=== PATIENT | female | born 1990 | race African-American/Black ===

== ENCOUNTER 2021-10-24 14:02 | Inpatient (IN) | payer OTHER ==
[2021-10-24] MEDS ORDERED: guaiFENesin 200 MG/10 ML 10 ML UNIT-DOSE CUPS PO PRN (16:27)
[2021-10-24] MEDS ORDERED: MAGNESIUM HYDROX 2400MG/30ML ORAL SUSPENSION 30 ML CUP PO PRN (16:27)
[2021-10-24] MEDS ORDERED: MAG HYDROX/AL HYDROX/SIMETH 30 ML UNIT-DOSE CUP PO PRN (16:27)
[2021-10-24] MEDS ORDERED: MAGNESIUM CITRATE 300 ML BOTTLE PO PRN (16:27)
[2021-10-24] MEDS ORDERED: IBUPROFEN 400 MG TABLET (FP) PO PRN (16:27)
[2021-10-24] MEDS ORDERED: LOPERAMIDE HCL 2 MG CAPSULE PO PRN (16:27)
[2021-10-24] MEDS ORDERED: P-EPHED 60MG/TRIPROLIDI 2.5MG TABLET PO PRN (16:27)
[2021-10-24] MEDS ORDERED: ACETAMINOPHEN 325 MG TABLET (FP) PO PRN (16:27)
[2021-10-24 19:40] VITALS: BMI 21.7
[2021-10-24] MEDS ORDERED: TUBERCULIN PPD 5 TU/0.1ML VIAL ID ONE (20:20)
[2021-10-24] MEDS: PRENATAL VITAMINS W/ FOLIC ACID TABLET (FP) PO SCH (20:27)
[2021-10-24] MEDS: NICOTINE 7 MG/24 HOURS TOPICAL PATCH TD SCH (20:27)
[2021-10-24] MEDS: NICOTINE 10 MG CARTRIDGE (INHALER) IH PRN (20:31)
[2021-10-24] MEDS: hydrOXYzine PAMOATE 25 MG CAPSULE (FP) PO SCH ×2 (20:37→21:41)
[2021-10-24] MEDS: MELATONIN 5 MG TABLETS PO SCH (21:41)
[2021-10-24] MEDS: THIAMINE HCL 100 MG TABLET (FP) PO SCH (21:41)
[2021-10-25] MEDS: hydrOXYzine PAMOATE 25 MG CAPSULE (FP) PO SCH ×3 (06:45→15:05)
[2021-10-25] MEDS: NICOTINE 7 MG/24 HOURS TOPICAL PATCH TD SCH (10:51)
[2021-10-25] MEDS: PRENATAL VITAMINS W/ FOLIC ACID TABLET (FP) PO SCH (10:51)
[2021-10-25 12:07] LABS: HEMATOCRIT 38.5 % (32.4-45.2); HEMOGLOBIN 13.1 GM/dL (10.7-15.3); MCH 32.9 pg (25.7-33.7); MEAN CELL VOLUME 96.8 fl (80-96); MEAN PLT VOLUME 8.2 fl (7.5-11.1); PLATELET COUNT 251 10^3/uL (134-434); RBC 3.98 M/mm3 (3.60-5.2); RDW 12.8 % (11.6-15.6); WHITE BLOOD COUNT 6.4 K/mm3 (4.0-10.0)
[2021-10-25 12:10] LABS: EPI CELLS 7 /uL (0-25.1); HYALINE CASTS 6 /uL (0-3.1); URINE APPEARANCE CLEAR; URINE BACTERIA 129 /uL (0-1359); URINE BILIRUBIN NEGATIVE (NEGATIVE); URINE COLOR YELLOW; URINE GLUCOSE (UA) NEGATIVE (NEGATIVE); URINE KETONE NEGATIVE (NEGATIVE); URINE LEUK ESTERASE 2+ (NEGATIVE); URINE NITRITE NEGATIVE (NEGATIVE); URINE PROTEIN NEGATIVE (NEGATIVE); URINE RBC 5 /uL (0-23.9); URINE UROBILINOGEN 0.2 mg/dL (0.2-1.0); URINE WBC 245 /uL (0-25.8)
[2021-10-25 12:25] LABS: CALCIUM 8.5 mg/dL (8.5-10.1)
[2021-10-25 12:29] LABS: CREATININE 0.7 mg/dL (0.55-1.3)
[2021-10-25 12:30] LABS: SYPHILIS W/ RPR CONF NON-REACTIVE (NONREACTIVE)
[2021-10-25 12:31] LABS: BILIRUBIN,TOTAL 0.2 mg/dL (0.2-1)
[2021-10-25 12:32] LABS: TOT PROT 6.4 g/dl (6.4-8.2)
[2021-10-25] MEDS: hydrOXYzine PAMOATE 25 MG CAPSULE (FP) PO PRN (21:18)
[2021-10-25] MEDS: THIAMINE HCL 100 MG TABLET (FP) PO SCH (21:18)
[2021-10-25] MEDS: MELATONIN 5 MG TABLETS PO SCH (21:18)
[2021-10-26] MEDS: NICOTINE 7 MG/24 HOURS TOPICAL PATCH TD SCH (10:55)
[2021-10-26] MEDS: hydrOXYzine PAMOATE 25 MG CAPSULE (FP) PO PRN (10:56)
[2021-10-26] MEDS: PRENATAL VITAMINS W/ FOLIC ACID TABLET (FP) PO SCH (10:56)
[2021-10-26] MEDS: NICOTINE 10 MG CARTRIDGE (INHALER) IH PRN ×2 (10:57→22:17)
[2021-10-26] MEDS: MELATONIN 5 MG TABLETS PO SCH (21:57)
[2021-10-26] MEDS: THIAMINE HCL 100 MG TABLET (FP) PO SCH (21:58)
[2021-10-27 00:06] LABS: SARS-CoV-2 NAA Not Detected (Not Detected)
[2021-10-27] MEDS: NICOTINE 7 MG/24 HOURS TOPICAL PATCH TD SCH (10:03)
[2021-10-27] MEDS: NICOTINE 10 MG CARTRIDGE (INHALER) IH PRN (10:03)
[2021-10-27] MEDS: PRENATAL VITAMINS W/ FOLIC ACID TABLET (FP) PO SCH (10:03)
[2021-10-27] MEDS: MELATONIN 5 MG TABLETS PO SCH (21:53)
[2021-10-27] MEDS: THIAMINE HCL 100 MG TABLET (FP) PO SCH (21:53)
[2021-10-27] MEDS: hydrOXYzine PAMOATE 25 MG CAPSULE (FP) PO PRN (21:54)
[2021-10-28] MEDS: NICOTINE 10 MG CARTRIDGE (INHALER) IH PRN ×3 (02:11→23:22)
[2021-10-28] MEDS: PRENATAL VITAMINS W/ FOLIC ACID TABLET (FP) PO SCH (10:50)
[2021-10-28] MEDS: NICOTINE 7 MG/24 HOURS TOPICAL PATCH TD SCH (10:50)
[2021-10-28] MEDS: hydrOXYzine PAMOATE 25 MG CAPSULE (FP) PO PRN (10:51)
[2021-10-28] MEDS ORDERED: QUEtiapine FUMARATE 25 MG TABLET PO ONE (17:52)
[2021-10-28] MEDS: THIAMINE HCL 100 MG TABLET (FP) PO SCH (21:28)
[2021-10-28] MEDS: MELATONIN 5 MG TABLETS PO SCH (21:28)
[2021-10-28] MEDS ORDERED: QUEtiapine FUMARATE 50 MG TABLET PO SCH (22:00)
[2021-10-29] MEDS: PRENATAL VITAMINS W/ FOLIC ACID TABLET (FP) PO SCH (10:59)
[2021-10-29] MEDS: NICOTINE 7 MG/24 HOURS TOPICAL PATCH TD SCH (10:59)
[2021-10-29 18:10] LABS: HIV INTERPRETATION NEGATIVE (NEGATIVE)
[2021-10-29] MEDS: QUEtiapine FUMARATE 100 MG TABLET (FP) PO SCH (21:38)
[2021-10-29] MEDS: MELATONIN 5 MG TABLETS PO SCH (21:38)
[2021-10-29] MEDS: THIAMINE HCL 100 MG TABLET (FP) PO SCH (21:38)
[2021-10-29] MEDS: hydrOXYzine PAMOATE 25 MG CAPSULE (FP) PO PRN (21:39)
[2021-10-30] MEDS: NICOTINE 10 MG CARTRIDGE (INHALER) IH PRN ×2 (10:37→21:31)
[2021-10-30] MEDS: NICOTINE 7 MG/24 HOURS TOPICAL PATCH TD SCH (10:37)
[2021-10-30] MEDS: PRENATAL VITAMINS W/ FOLIC ACID TABLET (FP) PO SCH (10:37)
[2021-10-30] MEDS: hydrOXYzine PAMOATE 25 MG CAPSULE (FP) PO PRN ×2 (10:38→21:37)
[2021-10-30] MEDS: THIAMINE HCL 100 MG TABLET (FP) PO SCH (21:23)
[2021-10-30] MEDS: QUEtiapine FUMARATE 100 MG TABLET (FP) PO SCH (21:23)
[2021-10-30] MEDS: MELATONIN 5 MG TABLETS PO SCH (21:23)
[2021-10-31 07:32] VITALS: BP 112/74; PULSE 62; TEMP 97.7
[2021-10-31] MEDS: NICOTINE 7 MG/24 HOURS TOPICAL PATCH TD SCH (10:55)
[2021-10-31] MEDS: PRENATAL VITAMINS W/ FOLIC ACID TABLET (FP) PO SCH (10:56)
[2021-10-31] MEDS: hydrOXYzine PAMOATE 25 MG CAPSULE (FP) PO PRN (10:57)
== END 2021-10-31 16:15 | disposition home or self-care (01) | DRG 772 ==
LOC: YASAS 14:02 → Y5N 19:36
PROVIDERS: ADMIT Allergy & Immunology; ATTEND Allergy & Immunology
PROC: HZ42ZZZ Group Counseling for Substance Abuse Treatment, Cognitive-Behavioral (ICD-10-PCS; principal; 2021-10-24)
DX: F14.20 Cocaine dependence, uncomplicated (principal); F10.10 Alcohol abuse, uncomplicated; F12.10 Cannabis abuse, uncomplicated; F17.210 Nicotine dependence, cigarettes, uncomplicated; F39 Unspecified mood [affective] disorder; F19.24 Other psychoactive substance dependence with psychoactive substance-induced mood disorder; F20.9 Schizophrenia, unspecified; M25.452 Effusion, left hip; Z86.59 Personal history of other mental and behavioral disorders; Z91.51 Personal history of suicidal behavior; Z28.310 Unvaccinated for COVID-19; Z56.0 Unemployment, unspecified; Z59.01 Sheltered homelessness
CPT/HCPCS: 36415; 80053; 81003; 85027; 86780; 86803; 87086; 87389; 93005; 93010; C9803-CS; U0003; U0005

== ENCOUNTER 2021-11-10 11:20 | Inpatient (IN) | payer OTHER ==
[2021-11-10 13:55] VITALS: BMI 21.2
[2021-11-10] MEDS ORDERED: LOPERAMIDE HCL 2 MG CAPSULE PO PRN (16:03)
[2021-11-10] MEDS ORDERED: BENZOCAINE/MENTHOL (CHLORASEPTIC ) LOZENGE MM PRN (16:03)
[2021-11-10] MEDS ORDERED: IBUPROFEN 400 MG TABLET (FP) PO PRN (16:03)
[2021-11-10] MEDS ORDERED: METHOCARBAMOL 500 MG TABLET PO PRN (16:03)
[2021-11-10] MEDS ORDERED: chlordiazePOXIDE HCL 25 MG CAPSULE PO PRN (16:03)
[2021-11-10] MEDS ORDERED: DICYCLOMINE HCL 10 MG CAPSULE PO PRN (16:03)
[2021-11-10] MEDS ORDERED: ONDANSETRON *ODT* 4 MG TABLET SL PRN (16:03)
[2021-11-10] MEDS ORDERED: NICOTINE 10 MG CARTRIDGE (INHALER) IH PRN (16:03)
[2021-11-10] MEDS ORDERED: ACETAMINOPHEN 325 MG TABLET (FP) PO PRN ×2 (16:03)
[2021-11-10] MEDS ORDERED: MAGNESIUM CITRATE 300 ML BOTTLE PO PRN (16:03)
[2021-11-10] MEDS ORDERED: BISMUTH SUBSALICYLATE 524 MG/30 ML PO PRN (16:03)
[2021-11-10] MEDS ORDERED: MAG HYDROX/AL HYDROX/SIMETH 30 ML UNIT-DOSE CUP PO PRN (16:03)
[2021-11-10] MEDS ORDERED: MAGNESIUM HYDROX 2400MG/30ML ORAL SUSPENSION 30 ML CUP PO PRN (16:03)
[2021-11-10] MEDS: chlordiazePOXIDE HCL 25 MG CAPSULE PO SCH ×2 (17:50→22:09)
[2021-11-10] MEDS: hydrOXYzine PAMOATE 25 MG CAPSULE (FP) PO SCH ×2 (17:50→22:09)
[2021-11-10] MEDS: THIAMINE HCL 100 MG TABLET (FP) PO SCH (22:09)
[2021-11-10] MEDS: MELATONIN 5 MG TABLETS PO SCH (22:09)
[2021-11-11] MEDS: hydrOXYzine PAMOATE 25 MG CAPSULE (FP) PO SCH ×5 (07:01→22:06)
[2021-11-11] MEDS: chlordiazePOXIDE HCL 25 MG CAPSULE PO SCH ×4 (07:01→22:07)
[2021-11-11 09:48] LABS: HEMATOCRIT 36.6 % (32.4-45.2); HEMOGLOBIN 12.6 GM/dL (10.7-15.3); MCH 32.9 pg (25.7-33.7); MCHC 34.3 g/dl (32.0-36.0); MEAN CELL VOLUME 95.8 fl (80-96); MEAN PLT VOLUME 7.2 fl (7.5-11.1); PLATELET COUNT 307 10^3/uL (134-434); RBC 3.82 M/mm3 (3.60-5.2); RDW 12.5 % (11.6-15.6); WHITE BLOOD COUNT 5.5 K/mm3 (4.0-10.0)
[2021-11-11 09:54] LABS: ALBUMIN 3.3 g/dl (3.4-5.0); BLOOD UREA NITROGEN 14.6 mg/dL (7-18)
[2021-11-11 09:55] LABS: CREATININE 0.8 mg/dL (0.55-1.3)
[2021-11-11 09:58] LABS: TOT PROT 6.6 g/dl (6.4-8.2)
[2021-11-11 10:02] LABS: BILIRUBIN,TOTAL 0.2 mg/dL (0.2-1)
[2021-11-11] MEDS: PRENATAL VITAMINS W/ FOLIC ACID TABLET (FP) PO SCH (10:04)
[2021-11-11 20:08] LABS: EPI CELLS >36 /uL (0-25.1); HYALINE CASTS 2 /uL (0-3.1); URINE APPEARANCE CLOUDY; URINE BACTERIA 291 /uL (0-1359); URINE BILIRUBIN NEGATIVE (NEGATIVE); URINE COLOR YELLOW; URINE GLUCOSE (UA) NEGATIVE (NEGATIVE); URINE KETONE NEGATIVE (NEGATIVE); URINE LEUK ESTERASE 1+ (NEGATIVE); URINE NITRITE NEGATIVE (NEGATIVE); URINE PROTEIN NEGATIVE (NEGATIVE); URINE RBC 9 /uL (0-23.9); URINE UROBILINOGEN 0.2 mg/dL (0.2-1.0); URINE WBC 90 /uL (0-25.8)
[2021-11-11] MEDS: MELATONIN 5 MG TABLETS PO SCH (22:06)
[2021-11-11] MEDS: THIAMINE HCL 100 MG TABLET (FP) PO SCH (22:06)
[2021-11-11] MEDS: QUEtiapine FUMARATE 100 MG TABLET (FP) PO SCH (22:06)
[2021-11-12] MEDS: chlordiazePOXIDE HCL 25 MG CAPSULE PO SCH ×4 (06:46→22:37)
[2021-11-12] MEDS: hydrOXYzine PAMOATE 25 MG CAPSULE (FP) PO SCH ×5 (06:46→22:37)
[2021-11-12] MEDS: PRENATAL VITAMINS W/ FOLIC ACID TABLET (FP) PO SCH (10:10)
[2021-11-12 12:10] LABS: SARS-CoV-2 NAA Not Detected (Not Detected)
[2021-11-12] MEDS: THIAMINE HCL 100 MG TABLET (FP) PO SCH (22:37)
[2021-11-12] MEDS: QUEtiapine FUMARATE 100 MG TABLET (FP) PO SCH (22:37)
[2021-11-12] MEDS: MELATONIN 5 MG TABLETS PO SCH (22:38)
[2021-11-13] MEDS ORDERED: chlordiazePOXIDE HCL 10 MG CAPSULE PO PRN
[2021-11-13] MEDS: chlordiazePOXIDE HCL 10 MG CAPSULE PO SCH ×4 (06:11→22:02)
[2021-11-13] MEDS: hydrOXYzine PAMOATE 25 MG CAPSULE (FP) PO SCH ×5 (06:11→22:01)
[2021-11-13] MEDS: PRENATAL VITAMINS W/ FOLIC ACID TABLET (FP) PO SCH (10:23)
[2021-11-13] MEDS: AMMONIUM LACTATE 12% LOTION 225 GM BOTTLE TP SCH ×2 (12:25→22:03)
[2021-11-13] MEDS: MELATONIN 5 MG TABLETS PO SCH (22:01)
[2021-11-13] MEDS: QUEtiapine FUMARATE 100 MG TABLET (FP) PO SCH (22:01)
[2021-11-13] MEDS: THIAMINE HCL 100 MG TABLET (FP) PO SCH (22:01)
[2021-11-14] MEDS ORDERED: chlordiazePOXIDE HCL 10 MG CAPSULE PO SCH (05:00)
[2021-11-14] MEDS: hydrOXYzine PAMOATE 25 MG CAPSULE (FP) PO SCH ×2 (06:40→10:41)
[2021-11-14 08:48] VITALS: PULSE 88
[2021-11-14] MEDS: PRENATAL VITAMINS W/ FOLIC ACID TABLET (FP) PO SCH (10:40)
[2021-11-14] MEDS: AMMONIUM LACTATE 12% LOTION 225 GM BOTTLE TP SCH (10:41)
[2021-11-14 12:59] VITALS: BP 115/80; TEMP 97.3
[2021-11-15] MEDS ORDERED: chlordiazePOXIDE HCL 10 MG CAPSULE PO ONE (05:00)
== END 2021-11-14 14:00 | disposition left against medical advice (07) | DRG 770 ==
LOC: YASAS 11:20 → Y3N 16:59
PROVIDERS: ADMIT Allergy & Immunology; ATTEND Allergy & Immunology
PROC: HZ2ZZZZ Detoxification Services for Substance Abuse Treatment (ICD-10-PCS; principal; 2021-11-10)
DX: F10.230 Alcohol dependence with withdrawal, uncomplicated (principal); F14.20 Cocaine dependence, uncomplicated; F17.210 Nicotine dependence, cigarettes, uncomplicated; F20.9 Schizophrenia, unspecified; F19.24 Other psychoactive substance dependence with psychoactive substance-induced mood disorder; Z56.0 Unemployment, unspecified; Z59.00 Homelessness unspecified
CPT/HCPCS: 36415; 80053; 81003; 81025; 85027; 86780; 87811; C9803-CS; U0003; U0005

== ENCOUNTER 2022-03-01 08:00 | Inpatient (IN) | payer OTHER ==
[2022-02-28 20:10] VITALS: BMI 23.1
[2022-03-01] MEDS: MELATONIN 5 MG TABLETS PO SCH ×2 (02:17→21:57)
[~2022-03-01 08:00] MED LIST: ACETAMINOPHEN 325 MG TABLET (FP) PO PRN; LOPERAMIDE HCL 2 MG CAPSULE PO PRN; MAG HYDROX/AL HYDROX/SIMETH 30 ML UNIT-DOSE CUP PO PRN; MAGNESIUM CITRATE 300 ML BOTTLE PO PRN; MAGNESIUM HYDROX 2400MG/30ML ORAL SUSPENSION 30 ML CUP PO PRN; NICOTINE 10 MG CARTRIDGE (INHALER) IH PRN; P-EPHED 60MG/TRIPROLIDI 2.5MG TABLET PO PRN; guaiFENesin 200 MG/10 ML 10 ML UNIT-DOSE CUPS PO PRN
[2022-03-01] MEDS: PRENATAL VITAMINS W/ FOLIC ACID TABLET (FP) PO SCH (09:55)
[2022-03-01 13:19] VITALS: RESP 18
[2022-03-01 13:58] LABS: HEMATOCRIT 37.9 % (32.4-45.2); HEMOGLOBIN 12.8 GM/dL (10.7-15.3); MCH 32.5 pg (25.7-33.7); MCHC 33.7 g/dl (32.0-36.0); MEAN CELL VOLUME 96.2 fl (80-96); MEAN PLT VOLUME 7.6 fl (7.5-11.1); PLATELET COUNT 346 10^3/uL (134-434); RBC 3.94 M/mm3 (3.60-5.2); RDW 12.8 % (11.6-15.6); WHITE BLOOD COUNT 7.7 K/mm3 (4.0-10.0)
[2022-03-01 14:13] LABS: ALBUMIN 2.9 g/dl (3.4-5.0); BLOOD UREA NITROGEN 11.4 mg/dL (7-18)
[2022-03-01 14:16] LABS: CREATININE 0.7 mg/dL (0.55-1.3)
[2022-03-01 14:18] LABS: BILIRUBIN,TOTAL 0.3 mg/dL (0.2-1); TOT PROT 6.2 g/dl (6.4-8.2)
[2022-03-01] MEDS: NICOTINE 7 MG/24 HOURS TOPICAL PATCH TD SCH (15:05)
[2022-03-01] MEDS: THIAMINE HCL 100 MG TABLET (FP) PO SCH (21:57)
[2022-03-01] MEDS: hydrOXYzine PAMOATE 25 MG CAPSULE (FP) PO PRN (21:57)
[2022-03-02] MEDS: PRENATAL VITAMINS W/ FOLIC ACID TABLET (FP) PO SCH (10:34)
[2022-03-02] MEDS: NICOTINE 7 MG/24 HOURS TOPICAL PATCH TD SCH (10:35)
[2022-03-02] MEDS: THIAMINE HCL 100 MG TABLET (FP) PO SCH (21:49)
[2022-03-02] MEDS: MELATONIN 5 MG TABLETS PO SCH (21:49)
[2022-03-02] MEDS: hydrOXYzine PAMOATE 25 MG CAPSULE (FP) PO PRN (21:49)
[2022-03-03 10:40] LABS: EPI CELLS 17 /uL (0-25.1); HYALINE CASTS 2 /uL (0-3.1); URINE APPEARANCE CLEAR; URINE BACTERIA 277 /uL (0-1359); URINE BILIRUBIN NEGATIVE (NEGATIVE); URINE COLOR YELLOW; URINE GLUCOSE (UA) NEGATIVE (NEGATIVE); URINE KETONE NEGATIVE (NEGATIVE); URINE LEUK ESTERASE 1+ (NEGATIVE); URINE NITRITE NEGATIVE (NEGATIVE); URINE PROTEIN NEGATIVE (NEGATIVE); URINE RBC 5 /uL (0-23.9); URINE UROBILINOGEN 0.2 mg/dL (0.2-1.0); URINE WBC 159 /uL (0-25.8)
[2022-03-03] MEDS: NICOTINE 7 MG/24 HOURS TOPICAL PATCH TD SCH (10:56)
[2022-03-03] MEDS: PRENATAL VITAMINS W/ FOLIC ACID TABLET (FP) PO SCH (10:56)
[2022-03-03] MEDS ORDERED: NICOTINE POLACRILEX 4 MG GUM BUC PRN (12:20)
[2022-03-03] MEDS ORDERED: QUEtiapine FUMARATE 50 MG TABLET PO ONE (13:45)
[2022-03-03] MEDS: MELATONIN 5 MG TABLETS PO SCH (21:12)
[2022-03-03] MEDS: QUEtiapine FUMARATE 100 MG TABLET (FP) PO SCH (21:12)
[2022-03-03] MEDS: THIAMINE HCL 100 MG TABLET (FP) PO SCH (21:12)
[2022-03-03] MEDS: hydrOXYzine PAMOATE 25 MG CAPSULE (FP) PO PRN (21:13)
[2022-03-04] MEDS: PRENATAL VITAMINS W/ FOLIC ACID TABLET (FP) PO SCH (11:19)
[2022-03-04] MEDS: QUEtiapine FUMARATE 25 MG TABLET PO SCH (11:19)
[2022-03-04] MEDS: NICOTINE 7 MG/24 HOURS TOPICAL PATCH TD SCH (11:19)
[2022-03-04] MEDS: MELATONIN 5 MG TABLETS PO SCH (21:52)
[2022-03-04] MEDS: THIAMINE HCL 100 MG TABLET (FP) PO SCH (21:53)
[2022-03-04] MEDS: QUEtiapine FUMARATE 100 MG TABLET (FP) PO SCH (21:54)
[2022-03-04] MEDS: hydrOXYzine PAMOATE 25 MG CAPSULE (FP) PO PRN (21:55)
[2022-03-05 08:06] VITALS: BP 118/69; PULSE 73; TEMP 98
[2022-03-05] MEDS ORDERED: LIDOCAINE VISCOUS 2% ORAL/TOP 15 ML UNIT-DOSE CUP MM PRN (10:44)
[2022-03-05] MEDS: QUEtiapine FUMARATE 25 MG TABLET PO SCH (10:50)
[2022-03-05] MEDS: PRENATAL VITAMINS W/ FOLIC ACID TABLET (FP) PO SCH (10:50)
[2022-03-05] MEDS: NICOTINE 7 MG/24 HOURS TOPICAL PATCH TD SCH (10:51)
[2022-03-05] MEDS: IBUPROFEN 400 MG TABLET (FP) PO PRN ×2 (10:54→11:02)
[2022-03-05] MEDS ORDERED: METHOCARBAMOL 500 MG TABLET PO SCH (14:00)
== END 2022-03-05 16:52 | disposition left against medical advice (07) | DRG 770 ==
LOC: YASAS 08:00 → Y5N 12:43
PROVIDERS: ADMIT Allergy & Immunology; ATTEND Psychiatry & Neurology Pain Medicine
PROC: HZ42ZZZ Group Counseling for Substance Abuse Treatment, Cognitive-Behavioral (ICD-10-PCS; principal; 2022-03-01)
DX: F14.20 Cocaine dependence, uncomplicated (principal); F17.210 Nicotine dependence, cigarettes, uncomplicated; F25.9 Schizoaffective disorder, unspecified; F19.24 Other psychoactive substance dependence with psychoactive substance-induced mood disorder; G47.00 Insomnia, unspecified; K08.89 Other specified disorders of teeth and supporting structures; Z56.0 Unemployment, unspecified; Z59.00 Homelessness unspecified
CPT/HCPCS: 36415; 80053; 81003; 81025; 85027; 86780; 87086; C9803-CS; U0003; U0005

== ENCOUNTER 2023-03-11 22:55 | Inpatient (IN) | payer OTHER ==
[2023-03-11 23:43] VITALS: BMI 20.7
[2023-03-12] MEDS ORDERED: NALOXONE HCL (KLOXXADO) 8 MG SPRAY NS PRN (00:07)
[2023-03-12] MEDS ORDERED: BENZOCAINE/MENTHOL (CHLORASEPTIC ) LOZENGE MM PRN (00:07)
[2023-03-12] MEDS ORDERED: BENZONATATE 200 MG CAPSULE PO PRN (00:07)
[2023-03-12] MEDS ORDERED: guaiFENesin 600 MG TABLET.ER (FP) PO PRN (00:07)
[2023-03-12] MEDS ORDERED: ONDANSETRON *ODT* 4 MG TABLET SL PRN (00:07)
[2023-03-12] MEDS ORDERED: BISMUTH SUBSALICYLATE 524 MG/30 ML PO PRN (00:07)
[2023-03-12] MEDS ORDERED: MAGNESIUM HYDROX 2400MG/30ML ORAL SUSPENSION 30 ML CUP PO PRN (00:07)
[2023-03-12] MEDS ORDERED: DICYCLOMINE HCL 10 MG CAPSULE PO PRN (00:07)
[2023-03-12] MEDS ORDERED: MAG HYDROX/AL HYDROX/SIMETH 30 ML UNIT-DOSE CUP PO PRN (00:07)
[2023-03-12] MEDS ORDERED: NICOTINE POLACRILEX 2 MG GUM BUC PRN (00:07)
[2023-03-12] MEDS ORDERED: IBUPROFEN 600 MG TABLET (FP) PO PRN (00:07)
[2023-03-12] MEDS ORDERED: LOPERAMIDE HCL 2 MG CAPSULE PO PRN (00:07)
[2023-03-12] MEDS ORDERED: IBUPROFEN 400 MG TABLET (FP) PO PRN (00:07)
[2023-03-12] MEDS ORDERED: NALOXONE HCL 0.4 MG/ML VIAL IM PRN (00:07)
[2023-03-12] MEDS ORDERED: ACETAMINOPHEN 325 MG TABLET (FP) PO PRN (00:07)
[2023-03-12] MEDS ORDERED: POLYETHYLENE GLYCOL (HEALTHYLAX) 3350 17 GM PACKET PO PRN (00:07)
[2023-03-12] MEDS: NICOTINE 14 MG/24 HOURS TOPICAL PATCH TD SCH ×2 (10:00→10:30)
[2023-03-12] MEDS: PRENATAL VITAMINS W/ FOLIC ACID TABLET (FP) PO SCH ×2 (10:00→10:30)
[2023-03-12] MEDS ORDERED: LORazepam 1 MG TABLET PO PRN (10:11)
[2023-03-12] MEDS: LORazepam 2 MG TABLET PO SCH ×4 (10:30→23:10)
[2023-03-12] MEDS: METHOCARBAMOL 500 MG TABLET PO PRN ×2 (11:32→23:10)
[2023-03-12] MEDS: hydrOXYzine PAMOATE 25 MG CAPSULE (FP) PO PRN (11:32)
[2023-03-12] MEDS: MELATONIN 5 MG TABLETS PO SCH (22:50)
[2023-03-12] MEDS: THIAMINE HCL 100 MG TABLET (FP) PO SCH (23:09)
[2023-03-13] MEDS: LORazepam 1 MG TABLET PO SCH ×4 (06:00→23:22)
[2023-03-13] MEDS: PRENATAL VITAMINS W/ FOLIC ACID TABLET (FP) PO SCH (10:56)
[2023-03-13] MEDS: NICOTINE 14 MG/24 HOURS TOPICAL PATCH TD SCH (10:56)
[2023-03-13] MEDS ORDERED: PNEUMOC 20-VAL CONJ-DIP CRM/PF 0.5 ML SYRINGE IM ONE (12:00)
[2023-03-13] MEDS: THIAMINE HCL 100 MG TABLET (FP) PO SCH (23:23)
[2023-03-13] MEDS: MELATONIN 5 MG TABLETS PO SCH (23:23)
[2023-03-14] MEDS: LORazepam 0.5 MG TABLET PO SCH ×3 (05:29→17:53)
[2023-03-14] MEDS: NICOTINE 14 MG/24 HOURS TOPICAL PATCH TD SCH (10:55)
[2023-03-14] MEDS: PRENATAL VITAMINS W/ FOLIC ACID TABLET (FP) PO SCH (10:55)
[2023-03-14] MEDS: hydrOXYzine PAMOATE 25 MG CAPSULE (FP) PO PRN (10:56)
[2023-03-14] MEDS: METHOCARBAMOL 500 MG TABLET PO PRN (10:56)
[2023-03-14 14:20] LABS: EPI CELLS >36 /uL (0-25.1); HYALINE CASTS 3 /uL (0-3.1); PH,URINE 7.5 (5.0-8.0); URINE APPEARANCE CLEAR; URINE BACTERIA 262 /uL (0-1359); URINE BILIRUBIN NEGATIVE (NEGATIVE); URINE COLOR YELLOW; URINE GLUCOSE (UA) NEGATIVE (NEGATIVE); URINE KETONE NEGATIVE (NEGATIVE); URINE LEUK ESTERASE TRACE (NEGATIVE); URINE NITRITE NEGATIVE (NEGATIVE); URINE PROTEIN NEGATIVE (NEGATIVE); URINE RBC 18 /uL (0-23.9); URINE UROBILINOGEN 0.2 mg/dL (0.2-1.0); URINE WBC 45 /uL (0-25.8)
[2023-03-15] MEDS: LORazepam 0.5 MG TABLET PO SCH (00:19)
[2023-03-15] MEDS: MELATONIN 5 MG TABLETS PO SCH (00:19)
[2023-03-15] MEDS: THIAMINE HCL 100 MG TABLET (FP) PO SCH (00:19)
[2023-03-15] MEDS ORDERED: LORazepam 0.5 MG TABLET PO ONE (05:00)
[2023-03-15 07:00] VITALS: TEMP 97.6
[2023-03-15 09:01] VITALS: PULSE 86; RESP 16
[2023-03-15 09:09] VITALS: BP 118/70
[2023-03-15] MEDS: PRENATAL VITAMINS W/ FOLIC ACID TABLET (FP) PO SCH (10:30)
[2023-03-15] MEDS: NICOTINE 14 MG/24 HOURS TOPICAL PATCH TD SCH (10:31)
== END 2023-03-15 11:17 | disposition home or self-care (01) | DRG 774 ==
LOC: YASAS 22:55 → Y6N 03-12 02:07
PROVIDERS: ADMIT Allergy & Immunology; ATTEND Surgery
PROC: HZ2ZZZZ Detoxification Services for Substance Abuse Treatment (ICD-10-PCS; principal; 2023-03-12)
DX: F10.230 Alcohol dependence with withdrawal, uncomplicated (principal); F14.20 Cocaine dependence, uncomplicated; F12.10 Cannabis abuse, uncomplicated; F17.210 Nicotine dependence, cigarettes, uncomplicated; F19.24 Other psychoactive substance dependence with psychoactive substance-induced mood disorder; Z59.00 Homelessness unspecified
CPT/HCPCS: 81003; 81025; 87635; 87811; 93005; 93010

== ENCOUNTER 2023-07-01 18:17 | Inpatient (IN) | payer OTHER ==
[2023-07-01 20:25] VITALS: BMI 22.7
[2023-07-01] MEDS ORDERED: MAGNESIUM HYDROX 2400MG/30ML ORAL SUSPENSION 30 ML CUP PO PRN (23:09)
[2023-07-01] MEDS ORDERED: BISMUTH SUBSALICYLATE 524 MG/30 ML PO PRN (23:09)
[2023-07-01] MEDS ORDERED: ONDANSETRON *ODT* 4 MG TABLET SL PRN (23:09)
[2023-07-01] MEDS ORDERED: LOPERAMIDE HCL 2 MG CAPSULE PO PRN (23:09)
[2023-07-01] MEDS ORDERED: BENZONATATE 200 MG CAPSULE PO PRN (23:09)
[2023-07-01] MEDS ORDERED: NICOTINE POLACRILEX 2 MG GUM BUC PRN (23:09)
[2023-07-01] MEDS ORDERED: IBUPROFEN 400 MG TABLET (FP) PO PRN (23:09)
[2023-07-01] MEDS ORDERED: P-EPHED 60MG/TRIPROLIDI 2.5MG TABLET PO PRN (23:09)
[2023-07-01] MEDS ORDERED: BENZOCAINE/MENTHOL (CHLORASEPTIC ) LOZENGE MM PRN (23:09)
[2023-07-01] MEDS ORDERED: MAG HYDROX/AL HYDROX/SIMETH 30 ML UNIT-DOSE CUP PO PRN (23:09)
[2023-07-01] MEDS ORDERED: guaiFENesin 600 MG TABLET.ER (FP) PO PRN (23:09)
[2023-07-01] MEDS ORDERED: DICYCLOMINE HCL 10 MG CAPSULE PO PRN (23:09)
[2023-07-01] MEDS ORDERED: POLYETHYLENE GLYCOL (HEALTHYLAX) 3350 17 GM PACKET PO PRN (23:09)
[2023-07-02] MEDS ORDERED: METHOCARBAMOL 500 MG TABLET ONE (00:13)
[2023-07-02] MEDS ORDERED: hydrOXYzine PAMOATE 25 MG CAPSULE (FP) PO ONE (00:13)
[2023-07-02] MEDS ORDERED: ACETAMINOPHEN 325 MG TABLET (FP) ONE (00:13)
[2023-07-02] MEDS: ACETAMINOPHEN 325 MG TABLET (FP) PO PRN ×2 (00:17→22:34)
[2023-07-02] MEDS: METHOCARBAMOL 500 MG TABLET PO PRN ×2 (00:17→17:26)
[2023-07-02] MEDS ORDERED: IBUPROFEN 600 MG TABLET (FP) PO ONE (00:34)
[2023-07-02] MEDS: IBUPROFEN 600 MG TABLET (FP) PO PRN ×2 (00:36→17:27)
[2023-07-02] MEDS ORDERED: LIDOCAINE VISCOUS 2% ORAL/TOP 15 ML UNIT-DOSE CUP MM ONE (01:29)
[2023-07-02] MEDS ORDERED: LORazepam 1 MG TABLET PO PRN (09:10)
[2023-07-02] MEDS: PRENATAL VITAMINS W/ FOLIC ACID TABLET (FP) PO SCH (10:52)
[2023-07-02] MEDS: LORazepam 2 MG TABLET PO SCH ×3 (10:53→22:32)
[2023-07-02 12:24] LABS: HEMATOCRIT 35.7 % (32.4-45.2); MCH 31.9 pg (25.7-33.7); MCHC 33.6 g/dl (32.0-36.0); MEAN PLT VOLUME 7.1 fl (7.5-11.1); PLATELET COUNT 308 10^3/uL (134-434); RBC 3.76 M/mm3 (3.60-5.2); RDW 12.5 % (11.6-15.6); WHITE BLOOD COUNT 7.3 K/mm3 (4.0-10.0)
[2023-07-02 12:52] LABS: CHLORIDE 108 mmol/L (98-107); SODIUM 139 mmol/L (136-145)
[2023-07-02 12:57] LABS: CALCIUM 8.2 mg/dL (8.5-10.1)
[2023-07-02 12:58] LABS: ANION GAP 6 mmol/L (4-13); BLOOD UREA NITROGEN 11.3 mg/dL (7-18); CO2 26 mmol/L (21-32); GLUCOSE,RANDOM 94 mg/dL (74-106)
[2023-07-02 13:00] LABS: SGPT/ALT 20 U/L (13-61)
[2023-07-02 13:01] LABS: CREATININE 0.5 mg/dL (0.55-1.3); SGOT/AST 17 U/L (15-37)
[2023-07-02 13:02] LABS: BILIRUBIN,TOTAL 0.6 mg/dL (0.2-1); TOT PROT 6.4 g/dl (6.4-8.2)
[2023-07-02 13:03] LABS: ALK PHOS 64 U/L (45-117)
[2023-07-02] MEDS: hydrOXYzine PAMOATE 25 MG CAPSULE (FP) PO PRN (17:27)
[2023-07-02] MEDS ORDERED: MELATONIN 5 MG TABLETS PO SCH ×2 (22:00)
[2023-07-02] MEDS ORDERED: THIAMINE HCL 100 MG TABLET (FP) PO SCH (22:00)
[2023-07-03] MEDS: IBUPROFEN 600 MG TABLET (FP) PO PRN ×2 (02:18→13:26)
[2023-07-03] MEDS: hydrOXYzine PAMOATE 25 MG CAPSULE (FP) PO PRN (02:20)
[2023-07-03] MEDS: METHOCARBAMOL 500 MG TABLET PO PRN ×2 (02:47→13:27)
[2023-07-03] MEDS: LORazepam 2 MG TABLET PO SCH ×2 (05:50→10:44)
[2023-07-03] MEDS: PRENATAL VITAMINS W/ FOLIC ACID TABLET (FP) PO SCH (10:43)
[2023-07-03 12:39] VITALS: BP 145/81; PULSE 95; RESP 18; TEMP 98
[2023-07-03] MEDS ORDERED: LIDOCAINE VISCOUS 2% ORAL/TOP 15 ML UNIT-DOSE CUP MM PRN (13:32)
[2023-07-04] MEDS ORDERED: LORazepam 1 MG TABLET PO SCH (05:00)
[2023-07-05] MEDS ORDERED: LORazepam 0.5 MG TABLET PO PRN
[2023-07-05] MEDS ORDERED: LORazepam 0.5 MG TABLET PO SCH (05:00)
[2023-07-06] MEDS ORDERED: LORazepam 0.5 MG TABLET PO ONE (05:00)
== END 2023-07-03 14:50 | disposition left against medical advice (07) | DRG 770 ==
LOC: YASAS 18:17 → Y6N 07-02 01:06
PROVIDERS: ADMIT Allergy & Immunology; ATTEND Surgery
PROC: HZ2ZZZZ Detoxification Services for Substance Abuse Treatment (ICD-10-PCS; principal; 2023-07-02)
DX: F10.230 Alcohol dependence with withdrawal, uncomplicated (principal); F14.20 Cocaine dependence, uncomplicated; F17.210 Nicotine dependence, cigarettes, uncomplicated; F20.9 Schizophrenia, unspecified; K08.89 Other specified disorders of teeth and supporting structures; M54.50 Low back pain, unspecified; G89.29 Other chronic pain; Z59.02 Unsheltered homelessness
CPT/HCPCS: 36415; 80053; 80307; 81025; 85027; 86593; 86780; 87635; 87811

== ENCOUNTER 2023-08-18 10:54 | Inpatient (IN) | payer OTHER ==
[2023-08-18 11:20] VITALS: BMI 23.5
[2023-08-18] MEDS ORDERED: NALOXONE HCL (KLOXXADO) 8 MG SPRAY NS PRN (12:59)
[2023-08-18] MEDS ORDERED: BENZONATATE 200 MG CAPSULE PO PRN (12:59)
[2023-08-18] MEDS ORDERED: IBUPROFEN 400 MG TABLET (FP) PO PRN (12:59)
[2023-08-18] MEDS ORDERED: DICYCLOMINE HCL 10 MG CAPSULE PO PRN (12:59)
[2023-08-18] MEDS ORDERED: MAG HYDROX/AL HYDROX/SIMETH 30 ML UNIT-DOSE CUP PO PRN (12:59)
[2023-08-18] MEDS ORDERED: BISMUTH SUBSALICYLATE 262 MG/15 ML BTL PO PRN (12:59)
[2023-08-18] MEDS ORDERED: LOPERAMIDE HCL 2 MG CAPSULE PO PRN (12:59)
[2023-08-18] MEDS ORDERED: guaiFENesin 600 MG TABLET.ER (FP) PO PRN (12:59)
[2023-08-18] MEDS ORDERED: ONDANSETRON *ODT* 4 MG TABLET SL PRN (12:59)
[2023-08-18] MEDS ORDERED: POLYETHYLENE GLYCOL (HEALTHYLAX) 3350 17 GM PACKET PO PRN (12:59)
[2023-08-18] MEDS ORDERED: chlordiazePOXIDE HCL 25 MG CAPSULE PO PRN (12:59)
[2023-08-18] MEDS ORDERED: hydrOXYzine PAMOATE 25 MG CAPSULE (FP) PO PRN (12:59)
[2023-08-18] MEDS ORDERED: BENZOCAINE/MENTHOL (CHLORASEPTIC ) LOZENGE MM PRN (12:59)
[2023-08-18] MEDS ORDERED: NALOXONE HCL 0.4 MG/ML VIAL IM PRN (12:59)
[2023-08-18] MEDS ORDERED: ACETAMINOPHEN 325 MG TABLET (FP) PO PRN (12:59)
[2023-08-18] MEDS ORDERED: MAGNESIUM HYDROX 2400MG/30ML ORAL SUSPENSION 30 ML CUP PO PRN (12:59)
[2023-08-18] MEDS ORDERED: METHOCARBAMOL 500 MG TABLET PO PRN (12:59)
[2023-08-18] MEDS: PRENATAL VITAMINS W/ FOLIC ACID TABLET (FP) PO SCH (13:55)
[2023-08-18] MEDS: chlordiazePOXIDE HCL 25 MG CAPSULE PO SCH ×2 (17:35→22:12)
[2023-08-18] MEDS: THIAMINE HCL 100 MG TABLET (FP) PO SCH (22:10)
[2023-08-18] MEDS: MELATONIN 5 MG TABLETS PO SCH (22:10)
[2023-08-19] MEDS: chlordiazePOXIDE HCL 25 MG CAPSULE PO SCH ×4 (05:41→23:05)
[2023-08-19 09:58] LABS: HEMATOCRIT 35.9 % (32.4-45.2); HEMOGLOBIN 12.4 GM/dL (10.7-15.3); MCHC 34.6 g/dl (32.0-36.0); MEAN CELL VOLUME 95.6 fl (80-96); MEAN PLT VOLUME 7.4 fl (7.5-11.1); PLATELET COUNT 296 10^3/uL (134-434); RBC 3.76 M/mm3 (3.60-5.2); RDW 13.3 % (11.6-15.6); WHITE BLOOD COUNT 8.7 K/mm3 (4.0-10.0)
[2023-08-19] MEDS: PRENATAL VITAMINS W/ FOLIC ACID TABLET (FP) PO SCH (10:15)
[2023-08-19 10:33] LABS: POTASSIUM 3.6 mmol/L (3.5-5.1)
[2023-08-19 10:36] LABS: ALBUMIN 3.4 g/dl (3.4-5.0); CALCIUM 8.7 mg/dL (8.5-10.1)
[2023-08-19 10:39] LABS: CREATININE 0.9 mg/dL (0.55-1.3)
[2023-08-19 10:41] LABS: BILIRUBIN,TOTAL 0.5 mg/dL (0.2-1)
[2023-08-19] MEDS: MELATONIN 5 MG TABLETS PO SCH (22:50)
[2023-08-19] MEDS: THIAMINE HCL 100 MG TABLET (FP) PO SCH (22:50)
[2023-08-20] MEDS: chlordiazePOXIDE HCL 25 MG CAPSULE PO SCH ×4 (05:32→22:32)
[2023-08-20] MEDS: PRENATAL VITAMINS W/ FOLIC ACID TABLET (FP) PO SCH (10:09)
[2023-08-20] MEDS: IBUPROFEN 600 MG TABLET (FP) PO PRN ×2 (10:10→18:42)
[2023-08-20] MEDS ORDERED: BENZOCAINE 20 % GEL TUBE MM PRN (20:48)
[2023-08-20] MEDS: MELATONIN 5 MG TABLETS PO SCH (22:32)
[2023-08-20] MEDS: THIAMINE HCL 100 MG TABLET (FP) PO SCH (22:32)
[2023-08-21] MEDS ORDERED: chlordiazePOXIDE HCL 10 MG CAPSULE PO PRN
[2023-08-21] MEDS: chlordiazePOXIDE HCL 10 MG CAPSULE PO SCH ×3 (05:51→17:55)
[2023-08-21] MEDS: PRENATAL VITAMINS W/ FOLIC ACID TABLET (FP) PO SCH (10:30)
[2023-08-21 20:51] VITALS: BP 117/67; PULSE 77; RESP 17; TEMP 97.6
[2023-08-22] MEDS ORDERED: chlordiazePOXIDE HCL 10 MG CAPSULE PO SCH (05:00)
[2023-08-23] MEDS ORDERED: chlordiazePOXIDE HCL 10 MG CAPSULE PO ONE (05:00)
== END 2023-08-21 16:25 | disposition short-term general hospital (02) | DRG 774 ==
LOC: YASAS 10:54 → Y3N 13:35
PROVIDERS: ADMIT Allergy & Immunology; ATTEND Allergy & Immunology
PROC: HZ2ZZZZ Detoxification Services for Substance Abuse Treatment (ICD-10-PCS; principal; 2023-08-18)
DX: F14.20 Cocaine dependence, uncomplicated (principal); F12.10 Cannabis abuse, uncomplicated; F17.210 Nicotine dependence, cigarettes, uncomplicated; R45.851 Suicidal ideations; K21.9 Gastro-esophageal reflux disease without esophagitis; M54.50 Low back pain, unspecified; G89.29 Other chronic pain; Z86.59 Personal history of other mental and behavioral disorders; Z91.199 Patient's noncompliance with other medical treatment and regimen due to unspecified reason; Z56.0 Unemployment, unspecified; Z59.00 Homelessness unspecified
CPT/HCPCS: 36415; 80053; 80307; 81025; 85027; 86593; 86780; 87635

== ENCOUNTER 2023-10-05 11:56 | Inpatient (IN) | payer OTHER ==
[2023-10-05 12:33] VITALS: BMI 21.5
[2023-10-05] MEDS ORDERED: NICOTINE POLACRILEX 2 MG GUM BUC PRN (16:02)
[2023-10-05] MEDS ORDERED: guaiFENesin 600 MG TABLET.ER (FP) PO PRN (16:02)
[2023-10-05] MEDS ORDERED: POLYETHYLENE GLYCOL (HEALTHYLAX) 3350 17 GM PACKET PO PRN (16:02)
[2023-10-05] MEDS ORDERED: LOPERAMIDE HCL 2 MG CAPSULE PO PRN (16:02)
[2023-10-05] MEDS ORDERED: BENZONATATE 200 MG CAPSULE PO PRN (16:02)
[2023-10-05] MEDS ORDERED: MAGNESIUM HYDROX 2400MG/30ML ORAL SUSPENSION 30 ML CUP PO PRN (16:02)
[2023-10-05] MEDS ORDERED: ONDANSETRON *ODT* 4 MG TABLET SL PRN (16:02)
[2023-10-05] MEDS ORDERED: DICYCLOMINE HCL 10 MG CAPSULE PO PRN (16:02)
[2023-10-05] MEDS ORDERED: BISMUTH SUBSALICYLATE 524 MG/30 ML PO PRN (16:02)
[2023-10-05] MEDS ORDERED: NALOXONE HCL 0.4 MG/ML VIAL IM PRN (16:02)
[2023-10-05] MEDS ORDERED: NALOXONE HCL (KLOXXADO) 8 MG SPRAY NS PRN (16:02)
[2023-10-05] MEDS ORDERED: BENZOCAINE/MENTHOL (CHLORASEPTIC ) LOZENGE MM PRN (16:02)
[2023-10-05] MEDS ORDERED: IBUPROFEN 400 MG TABLET (FP) PO PRN (16:02)
[2023-10-05] MEDS ORDERED: MAG HYDROX/AL HYDROX/SIMETH 30 ML UNIT-DOSE CUP PO PRN (16:02)
[2023-10-05] MEDS ORDERED: chlordiazePOXIDE HCL 25 MG CAPSULE PO PRN (16:05)
[2023-10-05] MEDS ORDERED: chlordiazePOXIDE HCL 25 MG CAPSULE ONE (16:27)
[2023-10-05] MEDS ORDERED: IBUPROFEN 600 MG TABLET (FP) PO ONE (16:27)
[2023-10-05] MEDS: chlordiazePOXIDE HCL 25 MG CAPSULE PO SCH (16:45)
[2023-10-05] MEDS: IBUPROFEN 600 MG TABLET (FP) PO PRN (16:46)
[2023-10-05] MEDS: METHOCARBAMOL 500 MG TABLET PO PRN (17:46)
[2023-10-05] MEDS: hydrOXYzine PAMOATE 25 MG CAPSULE (FP) PO PRN (17:46)
[2023-10-05] MEDS: ACETAMINOPHEN 325 MG TABLET (FP) PO ONE (18:43)
[2023-10-05] MEDS: MELATONIN 5 MG TABLETS PO SCH (22:37)
[2023-10-05] MEDS: BENZOCAINE 20 % GEL TUBE MM PRN (22:37)
[2023-10-05] MEDS: THIAMINE HCL 100 MG TABLET (FP) PO SCH (22:37)
[2023-10-06] MEDS: PRENATAL VITAMINS W/ FOLIC ACID TABLET (FP) PO SCH (10:14)
[2023-10-06] MEDS: NICOTINE 21 MG/24 HOURS TOPICAL PATCH TD SCH (10:17)
[2023-10-06 12:53] LABS: HEMATOCRIT 40.6 % (32.4-45.2); HEMOGLOBIN 13.5 GM/dL (10.7-15.3); MCH 32.5 pg (25.7-33.7); MCHC 33.2 g/dl (32.0-36.0); MEAN CELL VOLUME 97.7 fl (80-96); MEAN PLT VOLUME 7.9 fl (7.5-11.1); PLATELET COUNT 280 10^3/uL (134-434); RBC 4.15 M/mm3 (3.60-5.2); RDW 12.4 % (11.6-15.6); WHITE BLOOD COUNT 6.7 K/mm3 (4.0-10.0)
[2023-10-06 13:11] LABS: CHLORIDE 108 mmol/L (98-107); POTASSIUM 3.8 mmol/L (3.5-5.1); SODIUM 139 mmol/L (136-145)
[2023-10-06 13:34] LABS: CALCIUM 8.4 mg/dL (8.5-10.1)
[2023-10-06 13:35] LABS: ALBUMIN 3.1 g/dl (3.4-5.0); ANION GAP 6 mmol/L (4-13); BLOOD UREA NITROGEN 9.2 mg/dL (7-18); CO2 26 mmol/L (21-32); GLUCOSE,RANDOM 105 mg/dL (74-106)
[2023-10-06 13:37] LABS: SGOT/AST 4 U/L (15-37); SGPT/ALT 10 U/L (13-61)
[2023-10-06 13:38] LABS: BILIRUBIN,TOTAL 0.2 mg/dL (0.2-1); CREATININE 0.7 mg/dL (0.55-1.3)
[2023-10-06 13:39] LABS: ALK PHOS 64 U/L (45-117); TOT PROT 6.2 g/dl (6.4-8.2)
[2023-10-06] MEDS: cloNIDine HCL 0.1 MG TABLET PO PRN (15:07)
[2023-10-07] MEDS: chlordiazePOXIDE HCL 25 MG CAPSULE PO SCH (05:43)
[2023-10-07] MEDS: ACETAMINOPHEN 325 MG TABLET (FP) PO PRN (17:54)
[2023-10-08] MEDS ORDERED: chlordiazePOXIDE HCL 10 MG CAPSULE PO PRN
[2023-10-08] MEDS: chlordiazePOXIDE HCL 10 MG CAPSULE PO SCH (05:18)
[2023-10-09] MEDS: chlordiazePOXIDE HCL 10 MG CAPSULE PO SCH (06:00)
[2023-10-10] MEDS: chlordiazePOXIDE HCL 10 MG CAPSULE PO ONE (05:50)
[2023-10-10 06:34] VITALS: BP 123/65; PULSE 66; RESP 16; TEMP 98.4
== END 2023-10-10 09:20 | disposition home or self-care (01) | DRG 774 ==
LOC: YASAS 11:56 → Y6N 16:35
PROVIDERS: ADMIT Allergy & Immunology; ATTEND Surgery
PROC: HZ2ZZZZ Detoxification Services for Substance Abuse Treatment (ICD-10-PCS; principal; 2023-10-05)
DX: F10.230 Alcohol dependence with withdrawal, uncomplicated (principal); F14.20 Cocaine dependence, uncomplicated; F12.10 Cannabis abuse, uncomplicated; F17.210 Nicotine dependence, cigarettes, uncomplicated; F20.9 Schizophrenia, unspecified; F41.9 Anxiety disorder, unspecified; M54.50 Low back pain, unspecified; G89.29 Other chronic pain; Z56.0 Unemployment, unspecified; Z59.00 Homelessness unspecified
CPT/HCPCS: 36415; 80053; 80305; 80307; 81025; 85027; 86593; 86780; 93005; 93010

== ENCOUNTER 2024-03-12 09:46 | Inpatient (IN) | payer OTHER ==
[2024-03-12 10:13] VITALS: BMI 22.5
[2024-03-12] MEDS ORDERED: BENZOCAINE/MENTHOL (CHLORASEPTIC ) LOZENGE MM PRN (11:08)
[2024-03-12] MEDS ORDERED: ONDANSETRON *ODT* 4 MG TABLET SL PRN (11:08)
[2024-03-12] MEDS ORDERED: POLYETHYLENE GLYCOL (HEALTHYLAX) 3350 17 GM PACKET PO PRN (11:08)
[2024-03-12] MEDS ORDERED: guaiFENesin 600 MG TABLET.ER (FP) PO PRN (11:08)
[2024-03-12] MEDS ORDERED: DICYCLOMINE HCL 10 MG CAPSULE PO PRN (11:08)
[2024-03-12] MEDS ORDERED: BENZONATATE 200 MG CAPSULE PO PRN (11:08)
[2024-03-12] MEDS ORDERED: NALOXONE (NARCAN) HCL 4 MG/0.1 ML SPRAY NS PRN (11:08)
[2024-03-12] MEDS ORDERED: chlordiazePOXIDE HCL 25 MG CAPSULE PO PRN (11:08)
[2024-03-12] MEDS ORDERED: NALOXONE HCL 0.4 MG/ML VIAL IM PRN (11:08)
[2024-03-12] MEDS ORDERED: NICOTINE POLACRILEX 2 MG LOZENGE BC PRN (11:08)
[2024-03-12] MEDS ORDERED: MAG HYDROX/AL HYDROX/SIMETH 30 ML UNIT-DOSE CUP PO PRN (11:08)
[2024-03-12] MEDS ORDERED: MAGNESIUM HYDROX 2400MG/30ML ORAL SUSPENSION 30 ML CUP PO PRN (11:08)
[2024-03-12] MEDS ORDERED: LOPERAMIDE HCL 2 MG CAPSULE PO PRN (11:08)
[2024-03-12] MEDS ORDERED: ACETAMINOPHEN 325 MG TABLET (FP) PO PRN (11:08)
[2024-03-12] MEDS ORDERED: BISMUTH SUBSALICYLATE 524 MG/30 ML PO PRN (11:08)
[2024-03-12] MEDS ORDERED: IBUPROFEN 600 MG TABLET (FP) PO PRN (11:08)
[2024-03-12] MEDS ORDERED: IBUPROFEN 600 MG TABLET (FP) PO ONE (11:41)
[2024-03-12] MEDS ORDERED: NICOTINE 21 MG/24 HOURS TOPICAL PATCH ONE (11:41)
[2024-03-12] MEDS: IBUPROFEN 400 MG TABLET (FP) PO PRN (11:45)
[2024-03-12] MEDS: chlordiazePOXIDE HCL 25 MG CAPSULE PO SCH (17:33)
[2024-03-12] MEDS: METHOCARBAMOL 500 MG TABLET PO PRN (17:36)
[2024-03-12] MEDS: NICOTINE 21 MG/24 HOURS TOPICAL PATCH TD SCH (18:09)
[2024-03-12] MEDS: MELATONIN 5 MG TABLETS PO SCH (23:07)
[2024-03-12] MEDS: THIAMINE 100 MG TABLET PO SCH (23:07)
[2024-03-13 10:15] LABS: HEMOGLOBIN 12.3 GM/dL (10.7-15.3); MCH 32.7 pg (25.7-33.7); MCHC 34.1 g/dl (32.0-36.0); MEAN PLT VOLUME 7.6 fl (7.5-11.1); PLATELET COUNT 254 10^3/uL (134-434); RBC 3.75 M/mm3 (3.60-5.2); RDW 12.8 % (11.6-15.6); WHITE BLOOD COUNT 5.5 K/mm3 (4.0-10.0)
[2024-03-13] MEDS: PRENATAL VITAMINS W/ FOLIC ACID TABLET (FP) PO SCH (10:44)
[2024-03-13 10:58] LABS: CHLORIDE 110 mmol/L (98-107); POTASSIUM 4.3 mmol/L (3.5-5.1); SODIUM 140 mmol/L (136-145)
[2024-03-13 11:08] LABS: ANION GAP 6 mmol/L (4-13); BLOOD UREA NITROGEN 14.4 mg/dL (7-18); CALCIUM 8.5 mg/dL (8.5-10.1); CO2 24 mmol/L (21-32); GLUCOSE,RANDOM 94 mg/dL (74-106)
[2024-03-13 11:11] LABS: CREATININE 0.6 mg/dL (0.55-1.3); SGOT/AST 13 U/L (15-37); SGPT/ALT 15 U/L (13-61)
[2024-03-13 11:12] LABS: BILIRUBIN,TOTAL 0.4 mg/dL (0.2-1)
[2024-03-13 11:13] LABS: ALK PHOS 70 U/L (45-117)
[2024-03-13] MEDS: QUEtiapine FUMARATE 100 MG TABLET (FP) PO SCH (22:39)
[2024-03-14] MEDS: chlordiazePOXIDE HCL 25 MG CAPSULE PO SCH (05:39)
[2024-03-15] MEDS ORDERED: chlordiazePOXIDE HCL 10 MG CAPSULE PO PRN
[2024-03-15] MEDS: chlordiazePOXIDE HCL 10 MG CAPSULE PO SCH (05:37)
[2024-03-16] MEDS: chlordiazePOXIDE HCL 10 MG CAPSULE PO SCH (05:45)
[2024-03-16] MEDS: QUEtiapine FUMARATE 50 MG TABLET PO ONE (23:09)
[2024-03-17] MEDS: chlordiazePOXIDE HCL 10 MG CAPSULE PO ONE (05:47)
[2024-03-17] MEDS: QUEtiapine FUMARATE 50 MG TABLET PO ONE (23:16)
[2024-03-18 05:58] VITALS: RESP 16; TEMP 98.6
[2024-03-18 09:03] VITALS: BP 109/70; PULSE 86
== END 2024-03-18 10:16 | disposition home or self-care (01) | DRG 774 ==
LOC: YASAS 09:46 → Y6N 11:17
PROVIDERS: ADMIT Surgery; ATTEND Surgery
PROC: HZ2ZZZZ Detoxification Services for Substance Abuse Treatment (ICD-10-PCS; principal; 2024-03-12)
DX: F10.230 Alcohol dependence with withdrawal, uncomplicated (principal); F14.20 Cocaine dependence, uncomplicated; F12.20 Cannabis dependence, uncomplicated; F17.210 Nicotine dependence, cigarettes, uncomplicated; F20.9 Schizophrenia, unspecified; F31.9 Bipolar disorder, unspecified; F39 Unspecified mood [affective] disorder; F41.9 Anxiety disorder, unspecified; Z86.69 Personal history of other diseases of the nervous system and sense organs; Z59.01 Sheltered homelessness; Z56.0 Unemployment, unspecified
CPT/HCPCS: 36415; 80053; 80305; 80307; 85027; 86593; 86780; 87811

== ENCOUNTER 2024-04-15 10:22 | Inpatient (IN) | payer OTHER ==
[2024-04-15 10:56] VITALS: BMI 23.3
[2024-04-15] MEDS ORDERED: LOPERAMIDE HCL 2 MG CAPSULE PO PRN (11:31)
[2024-04-15] MEDS ORDERED: NICOTINE POLACRILEX 2 MG GUM BUC PRN (11:31)
[2024-04-15] MEDS ORDERED: MAGNESIUM HYDROX 2400MG/30ML ORAL SUSPENSION 30 ML CUP PO PRN (11:31)
[2024-04-15] MEDS ORDERED: DICYCLOMINE HCL 10 MG CAPSULE PO PRN (11:31)
[2024-04-15] MEDS ORDERED: BENZOCAINE/MENTHOL (CHLORASEPTIC ) LOZENGE MM PRN (11:31)
[2024-04-15] MEDS ORDERED: NALOXONE (NARCAN) HCL 4 MG/0.1 ML SPRAY NS PRN (11:31)
[2024-04-15] MEDS ORDERED: MAG HYDROX/AL HYDROX/SIMETH 30 ML UNIT-DOSE CUP PO PRN (11:31)
[2024-04-15] MEDS ORDERED: BENZONATATE 200 MG CAPSULE PO PRN (11:31)
[2024-04-15] MEDS ORDERED: NALOXONE HCL 0.4 MG/ML VIAL IM PRN (11:31)
[2024-04-15] MEDS ORDERED: ACETAMINOPHEN 325 MG TABLET (FP) PO PRN (11:31)
[2024-04-15] MEDS ORDERED: BISMUTH SUBSALICYLATE 524 MG/30 ML PO PRN (11:31)
[2024-04-15] MEDS ORDERED: ONDANSETRON *ODT* 4 MG TABLET SL PRN (11:31)
[2024-04-15] MEDS ORDERED: guaiFENesin 600 MG TABLET.ER (FP) PO PRN (11:31)
[2024-04-15] MEDS ORDERED: POLYETHYLENE GLYCOL (HEALTHYLAX) 3350 17 GM PACKET PO PRN (11:31)
[2024-04-15] MEDS ORDERED: IBUPROFEN 400 MG TABLET (FP) PO PRN (11:31)
[2024-04-15] MEDS ORDERED: IBUPROFEN 600 MG TABLET (FP) PO PRN (11:31)
[2024-04-15] MEDS ORDERED: chlordiazePOXIDE HCL 25 MG CAPSULE PO PRN (11:34)
[2024-04-15] MEDS: chlordiazePOXIDE HCL 25 MG CAPSULE PO SCH (17:36)
[2024-04-15 18:04] LABS: HIV INTERPRETATION NEGATIVE (NEGATIVE)
[2024-04-15] MEDS: THIAMINE 100 MG TABLET PO SCH (22:08)
[2024-04-15] MEDS: MELATONIN 5 MG TABLETS PO SCH (22:08)
[2024-04-16 08:58] LABS: HEMATOCRIT 38.6 % (32.4-45.2); HEMOGLOBIN 12.8 GM/dL (10.7-15.3); MCH 32.7 pg (25.7-33.7); MCHC 33.2 g/dl (32.0-36.0); MEAN CELL VOLUME 98.4 fl (80-96); MEAN PLT VOLUME 7.6 fl (7.5-11.1); PLATELET COUNT 276 10^3/uL (134-434); RBC 3.92 M/mm3 (3.60-5.2); RDW 12.9 % (11.6-15.6); WHITE BLOOD COUNT 7.1 K/mm3 (4.0-10.0)
[2024-04-16 09:10] LABS: BLOOD UREA NITROGEN 11.7 mg/dL (7-18); CALCIUM 8.9 mg/dL (8.5-10.1)
[2024-04-16 09:13] LABS: CREATININE 0.7 mg/dL (0.55-1.3)
[2024-04-16 09:14] LABS: BILIRUBIN,TOTAL 0.3 mg/dL (0.2-1); TOT PROT 6.2 g/dl (6.4-8.2)
[2024-04-16] MEDS: NICOTINE 14 MG/24 HOURS TOPICAL PATCH TD SCH (10:19)
[2024-04-16] MEDS: PRENATAL VITAMINS W/ FOLIC ACID TABLET (FP) PO SCH (10:19)
[2024-04-16] MEDS: QUEtiapine FUMARATE 50 MG TABLET PO SCH (22:04)
[2024-04-16] MEDS: METHOCARBAMOL 500 MG TABLET PO PRN (23:05)
[2024-04-17] MEDS: chlordiazePOXIDE HCL 25 MG CAPSULE PO SCH (05:47)
[2024-04-18] MEDS: chlordiazePOXIDE HCL 10 MG CAPSULE PO SCH (05:49)
[2024-04-18] MEDS: chlordiazePOXIDE HCL 10 MG CAPSULE PO PRN (10:37)
[2024-04-19] MEDS: chlordiazePOXIDE HCL 10 MG CAPSULE PO SCH (05:38)
[2024-04-19] MEDS: hydrOXYzine PAMOATE 25 MG CAPSULE (FP) PO PRN (22:03)
[2024-04-20] MEDS: chlordiazePOXIDE HCL 10 MG CAPSULE PO ONE (05:54)
[2024-04-20 09:17] VITALS: BP 116/60; PULSE 78; RESP 18; TEMP 98.2
== END 2024-04-20 12:15 | disposition other institution (70) | DRG 774 ==
LOC: YASAS 10:22 → Y6N 12:01
PROVIDERS: ADMIT Allergy & Immunology; ATTEND Surgery
PROC: HZ2ZZZZ Detoxification Services for Substance Abuse Treatment (ICD-10-PCS; principal; 2024-04-15)
DX: F10.230 Alcohol dependence with withdrawal, uncomplicated (principal); F14.10 Cocaine abuse, uncomplicated; F12.20 Cannabis dependence, uncomplicated; F17.210 Nicotine dependence, cigarettes, uncomplicated; F25.9 Schizoaffective disorder, unspecified; F19.24 Other psychoactive substance dependence with psychoactive substance-induced mood disorder; F19.282 Other psychoactive substance dependence with psychoactive substance-induced sleep disorder; F31.9 Bipolar disorder, unspecified; Z86.19 Personal history of other infectious and parasitic diseases
CPT/HCPCS: 36415; 80053; 80305; 80307; 81025; 85027; 86593; 86780; 86803; 87389; 93005; 93010

== ENCOUNTER 2024-05-09 17:12 | Inpatient (IN) | payer OTHER ==
[2024-05-09 18:48] VITALS: BMI 22.8
[2024-05-09] MEDS ORDERED: ONDANSETRON *ODT* 4 MG TABLET SL PRN (19:38)
[2024-05-09] MEDS ORDERED: MAG HYDROX/AL HYDROX/SIMETH 30 ML UNIT-DOSE CUP PO PRN (19:38)
[2024-05-09] MEDS ORDERED: IBUPROFEN 600 MG TABLET (FP) PO PRN (19:38)
[2024-05-09] MEDS ORDERED: BENZONATATE 200 MG CAPSULE PO PRN (19:38)
[2024-05-09] MEDS ORDERED: POLYETHYLENE GLYCOL (HEALTHYLAX) 3350 17 GM PACKET PO PRN (19:38)
[2024-05-09] MEDS ORDERED: IBUPROFEN 400 MG TABLET (FP) PO PRN (19:38)
[2024-05-09] MEDS ORDERED: DICYCLOMINE HCL 10 MG CAPSULE PO PRN (19:38)
[2024-05-09] MEDS ORDERED: NICOTINE POLACRILEX 2 MG LOZENGE BC PRN (19:38)
[2024-05-09] MEDS ORDERED: guaiFENesin 600 MG TABLET.ER (FP) PO PRN (19:38)
[2024-05-09] MEDS ORDERED: BENZOCAINE/MENTHOL (CHLORASEPTIC ) LOZENGE MM PRN (19:38)
[2024-05-09] MEDS ORDERED: NICOTINE POLACRILEX 2 MG GUM BUC PRN (19:38)
[2024-05-09] MEDS ORDERED: BISMUTH SUBSALICYLATE 524 MG/30 ML PO PRN (19:38)
[2024-05-09] MEDS ORDERED: hydrOXYzine PAMOATE 25 MG CAPSULE (FP) PO PRN (19:38)
[2024-05-09] MEDS ORDERED: MAGNESIUM HYDROX 2400MG/30ML ORAL SUSPENSION 30 ML CUP PO PRN (19:38)
[2024-05-09] MEDS: MELATONIN 5 MG TABLETS PO SCH (22:53)
[2024-05-09] MEDS: THIAMINE 100 MG TABLET PO SCH (22:53)
[2024-05-09] MEDS: METHOCARBAMOL 500 MG TABLET PO PRN (22:53)
[2024-05-10] MEDS: chlordiazePOXIDE HCL 25 MG CAPSULE PO SCH (10:03)
[2024-05-10] MEDS: PRENATAL VITAMINS W/ FOLIC ACID TABLET (FP) PO SCH (10:05)
[2024-05-10] MEDS ORDERED: NALTREXONE HCL 50 MG TABLET PO SCH (10:45)
[2024-05-10] MEDS: ACAMPROSATE CALCIUM 333 MG TABLET.DR PO SCH (13:18)
[2024-05-10] MEDS: ACETAMINOPHEN 325 MG TABLET (FP) PO PRN (18:03)
[2024-05-11] MEDS: chlordiazePOXIDE HCL 25 MG CAPSULE PO SCH (05:26)
[2024-05-11] MEDS: chlordiazePOXIDE HCL 25 MG CAPSULE PO PRN (21:34)
[2024-05-12] MEDS ORDERED: chlordiazePOXIDE HCL 10 MG CAPSULE PO PRN
[2024-05-12] MEDS: chlordiazePOXIDE HCL 10 MG CAPSULE PO SCH (05:46)
[2024-05-12] MEDS: LOPERAMIDE HCL 2 MG CAPSULE PO PRN (23:16)
[2024-05-13] MEDS: chlordiazePOXIDE HCL 10 MG CAPSULE PO SCH (04:26)
[2024-05-13 10:31] VITALS: BP 102/71; PULSE 79; RESP 18; TEMP 98.7
[2024-05-14] MEDS ORDERED: chlordiazePOXIDE HCL 10 MG CAPSULE PO ONE (05:00)
== END 2024-05-13 12:00 | disposition home or self-care (01) | DRG 774 ==
LOC: YASAS 17:12 → Y6N 20:11
PROVIDERS: ADMIT Allergy & Immunology; ATTEND Surgery
PROC: HZ2ZZZZ Detoxification Services for Substance Abuse Treatment (ICD-10-PCS; principal; 2024-05-09)
DX: F10.230 Alcohol dependence with withdrawal, uncomplicated (principal); F14.20 Cocaine dependence, uncomplicated; F17.210 Nicotine dependence, cigarettes, uncomplicated; F19.282 Other psychoactive substance dependence with psychoactive substance-induced sleep disorder; F20.9 Schizophrenia, unspecified; F31.9 Bipolar disorder, unspecified; F39 Unspecified mood [affective] disorder; F41.9 Anxiety disorder, unspecified; D64.9 Anemia, unspecified; M54.50 Low back pain, unspecified; G89.29 Other chronic pain; Z86.19 Personal history of other infectious and parasitic diseases; Z56.0 Unemployment, unspecified; Z59.00 Homelessness unspecified
CPT/HCPCS: 80305; 80307; 81025

== ENCOUNTER 2024-06-01 13:36 | Inpatient (IN) | payer OTHER ==
[2024-06-01 14:29] VITALS: BMI 26.3
[2024-06-01] MEDS ORDERED: guaiFENesin 600 MG TABLET.ER (FP) PO PRN (15:10)
[2024-06-01] MEDS ORDERED: BENZONATATE 200 MG CAPSULE PO PRN (15:10)
[2024-06-01] MEDS ORDERED: IBUPROFEN 400 MG TABLET (FP) PO PRN (15:10)
[2024-06-01] MEDS ORDERED: NICOTINE POLACRILEX 2 MG LOZENGE BC PRN (15:10)
[2024-06-01] MEDS ORDERED: BENZOCAINE/MENTHOL (CHLORASEPTIC ) LOZENGE MM PRN (15:10)
[2024-06-01] MEDS ORDERED: IBUPROFEN 600 MG TABLET (FP) PO PRN (15:10)
[2024-06-01] MEDS ORDERED: NICOTINE POLACRILEX 2 MG GUM BUC PRN (15:10)
[2024-06-01] MEDS ORDERED: ACETAMINOPHEN 325 MG TABLET (FP) PO PRN (15:10)
[2024-06-01] MEDS ORDERED: MAGNESIUM HYDROX 2400MG/30ML ORAL SUSPENSION 30 ML CUP PO PRN (15:10)
[2024-06-01] MEDS ORDERED: POLYETHYLENE GLYCOL (HEALTHYLAX) 3350 17 GM PACKET PO PRN (15:10)
[2024-06-01] MEDS ORDERED: ONDANSETRON *ODT* 4 MG TABLET SL PRN (15:10)
[2024-06-01] MEDS ORDERED: DICYCLOMINE HCL 10 MG CAPSULE PO PRN (15:10)
[2024-06-01] MEDS ORDERED: MAG HYDROX/AL HYDROX/SIMETH 30 ML UNIT-DOSE CUP PO PRN (15:10)
[2024-06-01] MEDS ORDERED: LOPERAMIDE HCL 2 MG CAPSULE PO PRN (15:10)
[2024-06-01] MEDS ORDERED: BISMUTH SUBSALICYLATE 524 MG/30 ML PO PRN (15:10)
[2024-06-01] MEDS ORDERED: diazePAM 5 MG TABLET PO PRN (16:18)
[2024-06-01] MEDS ORDERED: diazePAM 5 MG TABLET ONE (17:59)
[2024-06-01] MEDS: diazePAM 5 MG TABLET PO SCH (18:00)
[2024-06-01] MEDS: MELATONIN 5 MG TABLETS PO SCH (22:41)
[2024-06-01] MEDS: THIAMINE 100 MG TABLET PO SCH (22:41)
[2024-06-02] MEDS: diazePAM 5 MG TABLET PO SCH (05:59)
[2024-06-02] MEDS: DOCUSATE SODIUM 100 MG CAPSULE (FP) PO SCH (10:39)
[2024-06-02] MEDS: PRENATAL VITAMINS W/ FOLIC ACID TABLET (FP) PO SCH (10:39)
[2024-06-02 13:53] LABS: HIV INTERPRETATION NEGATIVE (NEGATIVE)
[2024-06-02] MEDS: PHENYLEPHRINE HCL/COCOA BUTTER 1 EACH SUPP.RECT RC SCH (15:18)
[2024-06-02] MEDS ORDERED: SENNOSIDES 8.6MG TABLET (FP) PO SCH (22:00)
[2024-06-02] MEDS: METHOCARBAMOL 500 MG TABLET PO PRN (22:50)
[2024-06-03] MEDS: diazePAM 5 MG TABLET PO SCH (05:57)
[2024-06-04] MEDS: diazePAM 5 MG TABLET PO ONE (06:03)
[2024-06-04 06:46] VITALS: PULSE 90
[2024-06-04 09:39] VITALS: BP 120/68; RESP 18; TEMP 98.2
== END 2024-06-04 12:44 | disposition home or self-care (01) | DRG 774 ==
LOC: YASAS 13:36 → Y6N 18:07
PROVIDERS: ADMIT Allergy & Immunology; ATTEND Surgery
PROC: HZ2ZZZZ Detoxification Services for Substance Abuse Treatment (ICD-10-PCS; principal; 2024-06-01)
DX: F10.230 Alcohol dependence with withdrawal, uncomplicated (principal); F14.20 Cocaine dependence, uncomplicated; F17.210 Nicotine dependence, cigarettes, uncomplicated; F41.9 Anxiety disorder, unspecified; K59.00 Constipation, unspecified
CPT/HCPCS: 36415; 80305; 80307; 81025; 87389